=== PATIENT | female | born 1965 | race Caucasian/White ===

== ENCOUNTER → 2016-11-21 | Outpatient (CLI) | payer BC, OTHER ==
[~2016-11-21] VITALS: Ht 165.1 cm; Wt 101.6 kg
[~2016-11-21] MED LIST: ACETAMINOPHEN-1 EACH PO; ALPRAZOLAM XR1 MG PO; APAP500 PO; ASA5UEC PO; ASA81BEC PO; ASPIRIN325 PO; BENTYL 10 MG CA10 M1 PO; BUTRANS1 EAC1 TD; CARDIZEM CD180 MG PO; CARDIZEM CD240 MG PO; CELEBREX 200 M200 MG PO; CYMBALTA30 MG PO; CYMBALTA60 MG PO; FLEXERIL PO; GRALISE600 MG PO; HYDROCODON-ACE1 EAC7 PO; HYDROCODONE-AP1 EAC6 PO; IBUPROFEN 600600 M1 PO; KEFLEX125 MG/5 M PO; LAMICTAL150 MG PO; LATUDA40 MG PO; LIDODERM 5%1 PATCH TOP; LITHIUM CARBON300 M3 PO; LOPRESSOR PO; LYRICA 50 MG50 MG PO; MOBIC15 MG PO; MOBIC7.5 MG PO; NABUMETONE 500500 M1 PO; NAPROSYN500 MG PO; NEURONTIN 300300 M1 PO; NORCO 5-325 TA1 EACH PO; OXCARBAZEPINE300 MG PO; OXCARBAZEPINE600 MG PO; PAXIL10 MG PO; PERCOCET PO; POTASSIUM20 PO; PRIMIDONE50 MG PO; PROPRANOLOL 1010 MG PO; RYTHMOL SR325 MG PO; TOPROL XL25 MG PO; TRILEPTAL300 MG PO; VALTREX 500 MG500 M1 PO; VALTREX 500 MG500 MG PO; VITAMIN B-12500 MCG PO; VITAMIN B12-FO1 EAC1 PO; XANAX1 MG PO; [UNRECOGNIZED DRUG - OTHER]
[2016-11-21 09:05] VITALS: BP 138/86
== END | disposition home or self-care (01) ==
LOC: PAIN 07:01
DX: M79.7 Fibromyalgia (principal); M54.6 Pain in thoracic spine; G89.29 Other chronic pain; F11.20 Opioid dependence, uncomplicated; Z87.891 Personal history of nicotine dependence; Z88.8 Allergy status to other drugs, medicaments and biological substances; Z79.82 Long term (current) use of aspirin

== ENCOUNTER → 2017-02-26 | Outpatient (CLI) | payer BC, OTHER ==
[~2017-02-26] VITALS: Ht 162.6 cm; Wt 103.4 kg
[~2017-02-26] MED LIST changes: +METHOCARBAMOL500 M2 PO
--- NOTE | ~2017-02-26 | HPC ---
[facility] [address] [place] [address] PAIN MANAGEMENT CONSULTATION Name: ANTWON LEONG Room #: REG WHITNEY NuñezChapincito#: [id number] Admission: 02/26/17 Attend Phys: Adi Lujan DO Discharge: Date of : 65 Report #: [id number] THIS REPORT FOR: //name// CC: Adi Medrano DATE OF SERVICE: 02/26/2017 REFERRING PHYSICIAN: Dr. Adi Oliveira. CHIEF COMPLAINT: Generalized body pain, increasing essential tremors. HISTORY OF PRESENT ILLNESS: As you know, the patient is a very unfortunate morbidly obese 51-year-old female with longstanding history of generalized pain disorder due to fibromyalgia. She also is experiencing increasing back pain, lower buttock pain after recent falls due to essential tremor and weakness. She is continuing workup for the essential tremors and is considering medical management options and deep brain stimulation. This should improve the patient's fall risk. She continues to experience generalized pain disorder for which she places pain score up to 8/10 involving her whole body. She describes the pain as numbness and stabbing, exacerbated with touching, weather, sitting, improves with rest, repositioning. She returns today in followup visit for medication management and discuss options for treatment for generalized body pain secondary to fibromyalgia. ALLERGIES: DILTIAZEM, NABUMETONE, LAMOTRIGINE, GABAPENTIN, BUPRENORPHINE, DULOXETINE, ARIPIPRAZOLE. CURRENT MEDICATIONS: Meloxicam, hydrocodone, alprazolam, lithium, diltiazem, long acting lamotrigine, dicyclomine, cyanocobalamin, valacyclovir, aspirin, and propafenone. SOCIAL HISTORY: The patient continues to smoke. Denies IV or illicit drug use. Denies any chronic alcohol use. She is on disability for her generalized pain disorder. She is unaccompanied today. IMAGING: No imaging available. PHYSICAL EXAMINATION: VITAL SIGNS: Blood pressure 132/85, pulse 83, respiratory rate 15, unlabored. The patient is 98% on room air. Height 5 feet 4 inches tall, weight 228 pounds, BMI calculated 39.1. GENERAL: Well-developed, well-nourished, well-hydrated, morbidly obese 51-year-old female, appearing older than stated age. She is placing pain score today 9-03/12. [place] [address] PAIN MANAGEMENT CONSULTATION Name: ANTWON LEONG Room #: REG WHITNEY Izaiah#: [id number] Admission: 02/26/17 Attend Phys: Adi Lujan DO Discharge: Date of : 65 Report #: [id number] HEENT: Normocephalic, atraumatic. Pupils equal, round, reactive to light. Extraocular muscles are intact. NEUROLOGIC: Speech is fluent. The patient deemed a fair historian. LUNGS: Clear, no wheeze, rhonchi or rales. CARDIOVASCULAR: Regular. No appreciable gallop or rub. ABDOMEN: Soft, obese, nontender, nondistended. EXTREMITIES: Show no clubbing, no cyanosis, no edema. MUSCULOSKELETAL: The patient does have essential tremors in the upper and lower extremities. These appear more profound than our last visit. She is continuing workup for this issue. There is palpatory tenderness of 18/18 tender points indicative of myofascial pain. ASSESSMENT: 1. Myofascial pain secondary to fibromyalgia. 2. Essential tremors. 3. Chronic intractable pain. PLAN: 1. The patient has returned today in followup visit where she is indicating generalized body pain once again. This appears to be related to fibromyalgia. We have had this discussion with the patient in the past and I am having the discussion again today about CDC's recommended guidelines for fibromyalgia, opioid management is not a consistent treatment option. She has been on hydrocodone prior to her visiting our clinic and we continued her on the medication as this was apparently the only thing that improved the symptoms, though at each visit the patient is indicating these are providing no benefit. I have discussed this with the patient once again today. She states that she misspoke, her pain medications do work well and wants to continue on the therapy. I have advised the patient at this time CDC recommended guidelines do indicate hydrocodone and other opioids are a relative contraindication in fibromyalgia. She will ultimately need to be seen by Rheumatology to rule out other etiologies other than fibromyalgia. If she continues to have the diagnosis of fibromyalgia, we will have to adjust her medications to comply with CDC guidelines, which do not indicate opioids as a viable treatment option. 2. The patient has recently sustained a fall and is experiencing some muscle spasming in the mid thoracic area. I will add a relatively nonsedating muscle relaxant to help with this issue. I have advised the patient this is not a long-acting treatment, she will need to do stretching exercises, core strengthening to improve her muscle spasming issues. She will need to initiate that therapy immediately. 3. The patient was provided a prescription of methocarbamol 500 mg dose 1 tab p.o. b.i.d., given the patient #60 tablets, 2 refills. This is to be used as needed. This will only be a short-term dosing use. 4. The patient was provided a refill prescription on meloxicam 7.5 mg 1 tab p.o. b.i.d., #60, two refills. She is denying any side effects of medication and we will continue this therapy. [facility] [address] [place] [address] PAIN MANAGEMENT CONSULTATION Name: ANWTON LEONG Room #: REG WHITNEY FriedmanHarvey.#: [id number] Admission: 02/26/17 Attend Phys: Adi Lujan DO Discharge: Date of : 65 Report #: [id number] 5. The patient was provided hydrocodone 5/325 one tab p.o. q.8 hours p.r.n. for pain, #90, releases of today, 4 weeks from today, 8 weeks from today. I did advise the patient that this medication will likely be discontinued in the very near future as the patient does have a diagnosis of fibromyalgia and opioids are a relative contraindication in fibromyalgia patients. They are met with low efficacy and high abuse potential. We discussed this with the patient today. She is going to consider her options and will discuss this at followup visit. 6. We will adjust medications again once the patient returns next visit. If we have her stabilized on medication, we will be returning her care to her primary care physician for continuation of therapy. It does not require a pain management physician to continue to write for medications that are stable and have been stable from almost 2 years. We will make the adjustments in the hydrocodone, which will allow the primary care physician to take over the writing of other baseline medications. By: [id number] Adi Lujan DO /clement
[2017-02-26 10:09] VITALS: BP 132/85
== END | disposition home or self-care (01) ==
LOC: PAIN 07:11
DX: M79.1 Myalgia (principal); G25.0 Essential tremor; G89.29 Other chronic pain; Z68.39 Body mass index [BMI] 39.0-39.9, adult; Z88.8 Allergy status to other drugs, medicaments and biological substances; Z79.899 Other long term (current) drug therapy

== ENCOUNTER → 2017-05-21 | Outpatient (CLI) | payer BC, OTHER ==
[~2017-05-21] VITALS: Ht 162.6 cm; Wt 106.5 kg
[~2017-05-21] MED LIST changes: -LAMICTAL150 MG PO; +LAMICTAL200 MG PO; +TOPAMAX50 MG PO
--- NOTE | ~2017-05-21 | HPC ---
[facility] [place] [address] PAIN MANAGEMENT CONSULTATION Name: ANTWON LEONG Room #: REG WHITNEY Joaquin.#: [id number] Admission: 05/21/17 Attend Phys: Adi Lujan DO Discharge: Date of : 65 Report #: [id number] THIS REPORT FOR: //name// CC: Saniya Lujan DATE OF SERVICE: 05/21/2017 CHIEF COMPLAINT: Generalized body pain, essential tremors. HISTORY OF PRESENT ILLNESS: As you know, the patient is a very unfortunate 51-year-old morbidly obese female with long-standing history of generalized pain disorder due to fibromyalgia. She has also been experiencing essential tremors, for which she is being evaluated by Neurology. She returns today in followup visit, requesting refills on her hydrocodone, Mobic and methocarbamol. She is indicating that she does receive analgesic benefit with this medication despite the elevated pain level of 3-4/10 today. She states that weather, sitting, driving and touching her, exacerbates her symptoms; improves with rest, repositioning, medications. We have discussed with the patient at previous evaluations that ultimately the hydrocodone will need to discontinue as this is not an appropriate treatment option per the CDC recommended guidelines for fibromyalgia. This patient requests that we continue the medication for the next 3 months and then adjust once spring begins. ALLERGIES: DILTIAZEM, NABUMETONE, LAMOTRIGINE, GABAPENTIN, BUPRENORPHINE, DULOXETINE, ARIPIPRAZOLE. CURRENT MEDICATIONS: Meloxicam, hydrocodone, alprazolam, lithium, diltiazem, lamotrigine, dicyclomine, cyanocobalamin, valacyclovir, aspirin and propafenone. SOCIAL HISTORY: The patient continues to smoke. Denies IV or illicit drug use. Denies any chronic alcohol use. She is on disability due to generalized pain disorder, unaccompanied today. IMAGING: No new imaging available. PHYSICAL EXAMINATION: VITAL SIGNS: Blood pressure 122/69, pulse 66, respiratory rate 14 and unlabored. The patient is 97% on room air. Height 5 feet 4 inches tall, weight 234.8 pounds, BMI calculated 40.3. GENERAL: Well-developed, well-nourished, well-hydrated, class 3 morbidly obese 51-year-old female appearing her stated age, placing pain score today 3-4/10. HEENT: Normocephalic, atraumatic. Pupils equal, round, reactive to light. EXTREMITIES: Show no clubbing, no cyanosis, no edema. MUSCULOSKELETAL: The patient is tender to palpation of 18/18 tender points, indicative of fibromyalgia. She does show essential [place] [address] PAIN MANAGEMENT CONSULTATION Name: DANGANTWON R Room #: REG WHITNEY Bliss#: [id number] Admission: 05/21/17 Attend Phys: Adi Lujan DO Discharge: Date of : 65 Report #: [id number] lower extremities. ASSESSMENT: 1. Fibromyalgia. 2. Essential tremors. 3. Chronic intractable pain. PLAN: 1. The patient returns today in followup visit, requesting refill on medications. She is taking hydrocodone 5/325 three times a day for pain control along with meloxicam 7.5 mg twice a day for anti-inflammatory effects and methocarbamol 500 mg for muscle spasming twice a day. The patient states the combination of medications are beneficial for pain control and places pain score today 3-4/10. I have discussed with the patient our concerns of these medications with a diagnosis of fibromyalgia. Fibromyalgia is a relative contraindication for opioid medications and have voiced her concerns about this today. I have advised the patient that we will be complying with CDC's recommended guidelines for fibromyalgia treatment and that these medications will ultimately be discontinued. The patient has requested that we delay are discontinuation of medication for the next 3 months as she does wish to get through the winter before making adjustments in her medications. I have agreed to provide 3 more months' worth of medication as she is noticing analgesic benefit, no side effects, but have indicated that continuation of this therapy is not indicated further given the new CDC guidelines for fibromyalgia treatment, which do not include opioid therapy. She can continue on the meloxicam and the methocarbamol. These appear to be appropriate per the new recommendations. 2. The patient was provided hydrocodone 5/325 one tab every 8 hours p.r.n. for pain, #90, releases of today, 4 weeks from today, 8 weeks from today, 3 months' worth of medication. 3. The patient was provided a prescription of Mobic 7.5 mg 1 tab p.o. b.i.d., #60, two refills. 4. The patient was provided prescription of methocarbamol 500 mg dose, 1 tab p.o. b.i.d., #60, two refills. 5. I will see the patient back in followup visit in 3 months where we will discontinue the hydrocodone and begin CDC recommended guideline treatment for fibromyalgia. By: [id number] Adi Lujan DO /nt
[2017-05-21 09:30] VITALS: BP 122/69
== END ==
LOC: PAIN 06:43
DX: G25.0 Essential tremor (principal); G89.29 Other chronic pain; M79.7 Fibromyalgia; F17.200 Nicotine dependence, unspecified, uncomplicated

== ENCOUNTER → 2017-08-20 | Outpatient (CLI) | payer BC, OTHER ==
[~2017-08-20] VITALS: Ht 162.6 cm; Wt 104.1 kg
[~2017-08-20] MED LIST changes: +BACLOFEN 10MG T10 MG PO; +VRAYLAR1.5 MG PO
--- NOTE | ~2017-08-20 | HPC ---
[facility] [place] [address] [place] [address] PAIN MANAGEMENT CONSULTATION Name: ANTWON LEONG Room #: REG WHITNEY Izaiah#: [id number] Admission: 08/20/17 Attend Phys: Adi Lujan DO Discharge: Date of : 65 Report #: [id number] THIS REPORT FOR: //name// CC: WALTER Lujan DATE OF SERVICE: 08/20/2017 CHIEF COMPLAINT: Generalized body pain, essential tremors, low back pain. HISTORY OF PRESENT ILLNESS: As you know, the patient is a very unfortunate 51-year-old morbidly obese female with longstanding history of generalized pain disorder due to fibromyalgia. She is also experiencing general essential tremors, being evaluated through Neurology and treatment options have begun. She is also complaining of low back pain for which she states she sustained a recent fall. She has sought no evaluation or treatment. This fall occurred about one week ago, but her pain has continued. She returns to discuss medication management as she is finding benefit with hydrocodone, meloxicam and baclofen, but is also concerned about this new onset of low back pain after her fall. ALLERGIES: DILTIAZEM, NABUMETONE, LAMOTRIGINE, GABAPENTIN, BUPRENORPHINE, DULOXETINE, ARIPIPRAZOLE. CURRENT MEDICATIONS: Meloxicam, hydrocodone, alprazolam, lithium, diltiazem, lamotrigine, doxycycline, valacyclovir, aspirin, and propafenone. SOCIAL HISTORY: The patient continues to smoke. Denies IV or illicit drug use. Denies any chronic alcohol use. She is on disability due to chronic generalized pain. IMAGING: No new imaging available. PHYSICAL EXAMINATION: VITAL SIGNS: Blood pressure 118/74, pulse 77, respiratory rate 16 and unlabored. The patient is 98% on room air. Height 5 feet 4 inches tall, weight 229.6 pounds, BMI calculated at 39.4. GENERAL: Well-developed, well-nourished, well-hydrated, morbidly obese 51-year-old female appearing her stated age, placing current pain score at 6-7/10. HEENT: Normocephalic, atraumatic. Pupils equal, round, reactive to light. Extraocular muscles are intact. EXTREMITIES: Show no clubbing, no cyanosis, no edema. MUSCULOSKELETAL: The patient remains tender to palpation of 18/18 tender points indicative of fibromyalgia. She does show essential tremors in the [address] [address] PAIN MANAGEMENT CONSULTATION Name: ANTWON LEONG [id number] Admission: 08/20/17 Attend Phys: Adi Lujan DO Discharge: Date of : 65 Report #: [id number] extremities, but these appear to be slightly improved. She has palpatory tenderness over the lower back area. No ecchymosis, no changes in skin color texture. ASSESSMENT: 1. Fibromyalgia. 2. Low back pain status post fall. 3. Chronic intractable pain. PLAN: 1. The patient has returned today in followup visit indicating a recent fall exacerbating low back pain. She returns here for evaluation she has not sought any treatment. She states the fall led to instantaneous back pain, but did not seek any type of evaluation. She has not improved over the past week. Recommend the patient to undergo x-ray imaging of the lumbar region. We will have the patient undergo the imaging today, both AP and lateral imaging will be performed. The patient can contact the clinic tomorrow for the results. 2. The patient has requested refill on medications in the form of baclofen 10 mg dose 1 tab p.o. t.i.d., this is a medication to replace her methocarbamol that she requested at last visit. She stated that the methocarbamol at last visit worked very well, but unfortunately did not work as she had anticipated. We will trial the patient on baclofen 10 mg dose. This is a more appropriate muscle relaxant medication for this patient. She was given # 90 tablets, 2 refills. 3. The patient has a received a refill of meloxicam 7.5 mg 1 tab p.o. b.i.d., # 60, two refills. This is used for anti-inflammatory effects. She is denying side effects with its use. 4. The patient has requested refill on hydrocodone. She is taking 5/325 up to 3 a day. She states that at present she has a prescription of 1.5 bottles remaining. She will only need a refill in 4 weeks instead of her typical 3 prescriptions. Recommend the patient use this as inconsistently as possible. I did discuss with the patient that opioid medications in fibromyalgia patient is relative contraindication, these will likely need to be discontinued sooner rather than later. At this point, we will continue the patient on the medication as she does find benefit and she is using them appropriately for her generalized pain, but ultimately will have to wean off. We discussed this again today. She was given a prescription of hydrocodone 5/325 one tab every 8 hours p.r.n. for pain, #90, releasing in 4 weeks. 5. The patient will submit urine drug screen today. This is part of our screening process to confirm patients are utilizing medication appropriately. The patient has submitted to screen, we will have the results within about [address] [id number] PAIN MANAGEMENT CONSULTATION Name: ANTWON LEONG Gonzales Room #: REG WHITNEY Bliss#: [id number] Admission: 08/20/17 Attend Phys: Adi Lujan DO Discharge: Date of : 65 Report #: [id number] weeks. She can contact our clinic. She remains under contract with [facility] for opioid therapy. <ELECTRONICALLY SIGNED> By: Adi Lujan DO 08/28/17 0736 [id number] Adi Lujan DO /nt
[2017-08-20 10:03] VITALS: BP 118/74
== END ==
LOC: PAIN 07:01
DX: M43.16 Spondylolisthesis, lumbar region (principal); M51.37 Other intervertebral disc degeneration, lumbosacral region; M79.7 Fibromyalgia; Z79.899 Other long term (current) drug therapy

== ENCOUNTER → 2017-12-11 | Outpatient (CLI) | payer BC, OTHER ==
[~2017-12-11] VITALS: Ht 162.6 cm; Wt 104.0 kg
[2017-12-11 10:29] VITALS: BP 129/92
== END ==
LOC: PAIN 12-10 12:23
DX: M54.5 Low back pain (principal); M19.90 Unspecified osteoarthritis, unspecified site; I10 Essential (primary) hypertension; Z79.891 Long term (current) use of opiate analgesic; Z87.891 Personal history of nicotine dependence

== ENCOUNTER → 2018-03-25 | Outpatient (CLI) | payer BC, OTHER ==
[~2018-03-25] VITALS: Ht 162.6 cm; Wt 103.9 kg
--- NOTE | ~2018-03-25 | HPC ---
[facility] [place] [address] PAIN MANAGEMENT CONSULTATION Name: ANTWON LEONG Room #: REG WHITNEY Izaiah#: [id number] Admission: 03/25/18 Attend Phys: Olive Breaux Discharge: Date of : 65 Report #: [id number] THIS REPORT FOR: //name// CC: Olive Morrow MD DATE OF SERVICE: 03/25/2018 CHIEF COMPLAINT: Generalized body pain, essential tremors, low back pain and fibromyalgia. HISTORY OF PRESENT ILLNESS: As you know, this patient is a very unfortunate 52-year-old female with longstanding history of generalized pain disorder due to her fibromyalgia. She also suffers from essential tremors, which are very obvious presently today. She is being treated for that through Neurology. She also complains today of low back pain, mid thoracic pain, especially at her bra line and some knee pain, especially right knee. She states that she needs a refill of her medications. She states that today has been a bad day, rating her pain 6-7/10. Normally it is an average pain of 5, but she states that she has been out of her pain meds for several days. She states that she does take about 0-3 tablets a day, which is equivalent to 15 mEq of morphine a day, which is below the CDC guidelines and Meloxicam 7.5 twice a day, which she takes every day. She states that it is very helpful to relieve her pain. She tells me that she is having increased knee pain and so she has seen the orthopedic, Dr. Mancera on Saturday. She is hopeful for a possible knee replacement. I did talk to the patient that she will need x-ray films first and maybe there are other options before orthopedic replaced her knee. The patient will be seen in consult on Saturday and then will know the results after that. ALLERGIES: SOY, VALIUM, NABUMETONE, GABAPENTIN, FLECAINIDE, BUTRANS, PROPRANOLOL, CYMBALTA, ABILIFY. CURRENT LIST OF MEDICATIONS: Meloxicam 7.5 b.i.d., hydrocodone 5/325 up to 3 times a day, Xanax 1 mg daily, lithium 300 mg 1 in the morning, 2 at night, Cardizem 240 mg once a day, Lamictal 200 mg 2 tablets twice a day, vitamin B12, Valtrex 500 mg daily, 325 aspirin, Rythmol 325 b.i.d., cariprazine hydrochloride 1.5 capsules daily. PQRS: 1. History of osteoarthritis in her back and her knees. No history of rheumatoid arthritis. 2. Height 5 feet 4 inches, weight 229, BMI is 39.3. 3. Vital signs: 131/86, pulse is 91, respirations 14, oxygen is 98. 4. Pain score is 6-7. 5. Fall risk. Denies dizziness. Does not need help walking and standing, but [address] [place] [address] PAIN MANAGEMENT CONSULTATION Name: ANTWON LEONG Room #: REG WHITNEY Bliss#: [id number] Admission: 03/25/18 Attend Phys: Olive Breaux Discharge: Date of : 65 Report #: [id number] states that she has fallen a couple times like going up the steps due to decreased strength she states. No hospitalization or doctor visit with that fall. 6. Denies blood thinners. 7. Does have a history of hypertension. 8. Opioid therapy greater than 6 weeks. Therefore, is on opioids on contract on the chart. 9. Risk assessment tool is low. 10. Functional assessment is 56/70. 11. The patient denies recreational drug use, is a former smoker and no alcohol use. [facility] DPMP has been checked on this patient. There was a fill from a dentist. When I asked the patient about this, she states that she had had a root canal and was given 3 days of hydrocodone. I explained to the patient that she has a contract that she signed with Dr. Lujan in agreement that she would only get narcotics from our doctor. The patient states she did not understand that she could not get some when she had surgery. I explained to the patient as she would have called and let us know of this, we would have tried to make alterations in her current medications, so she would not need to fill the hydrocodone from this dentist. The patient states she is aware of this now and will not make the same mistake in the future. She did question about if she did have a knee replacement and required medications. I informed her to call our office and we would discuss it at that time and possibly would okay that fill due to her postop pain that she will incur. PHYSICAL ASSESSMENT: VITAL SIGNS: 131/86, pulse 91, respirations 14, oxygen sat 98 on room air. GENERAL: Well-developed, well-nourished, well-hydrated, obese 52-year-old female, appears her stated age. She is in no acute distress. She is alert and oriented x 3. The patient's pain score is 6-7/10. HEENT: Normocephalic, atraumatic. Pupils equal, round and reactive to light. Speech is fluent. EXTREMITIES: No clubbing, no cyanosis, no edema. MUSCULOSKELETAL: The patient has tenderness over her knee today and strength is 3/5, appears diminished on the right side. She does display essential tremors, mainly in her upper extremities. She also has tenderness to palpation on her back. IMPRESSION: 1. Fibromyalgia. 2. Chronic low back pain. 3. Chronic intractable pain. 4. Essential tremors. 5. Right knee pain. [facility] [address] [place] [address] PAIN MANAGEMENT CONSULTATION Name: ADNGANTWON Room #: REG WHITNEY Izaiah#: [id number] Admission: 03/25/18 Attend Phys: Olive Breaux Discharge: Date of : 65 Report #: [id number] We reviewed the fact that opiate medications are being used to provide analgesia adequate to support activities of daily living, not attempting to achieve a specific pain score on the 0-10 Visual Analog Scale. The current opiate medications are providing sufficient analgesia to allow the patient to participate in activities of daily living. The patient is not exhibiting any aberrant behavior suggestive of drug diversion. The patient is not having any adverse reactions to medications. The patient is not suffering from daytime somnolence or mental acuity changes. The patient is managing opiate-induced constipation with appropriate tivy-jxd-lpeuden agents and dietary considerations. The patient was counseled on concern for caution with operating a motor vehicle while using opiate medications. A physical exam was performed and the patient's functional status was evaluated. All patients with back pain were advised against the bed rest greater than 4 days and were advised to return to normal activities. Pain score assessment was noted and the treatment plan was reviewed with the patient. All current medications, both prescribed and OTC were reviewed and reconciled on the electronic medical record. Tobacco screening was accomplished and smoking cessation was advised when indicated. BMI was noted and diet/exercise modification was recommended for all patients following outside normal parameters. I reviewed with the patient today their responsibilities to safeguard prescription medications, reviewed their responsibility to utilize medications only as prescribed by the physician. They are to seek and receive pain medications only from 1 physician group ( [facility]). They are to use 1 pharmacy and keep the clinic informed if they change pharmacies. Their responsibilities include making followup visits in a timely fashion and to avoid abrupt discontinuation of medication usage. Their responsibilities further include bringing their medications (bottles from the pharmacy with residual pills) to the visit for possible confirmation of pill counts and the patient understands it is their responsibility to submit to random drug screens to ensure both that the medications prescribed are present, and that no other controlled substances are present. All prescriptions provided today were generated electronically. PLAN: 1. The patient returns today for followup for refills of both her hydrocodone and her Meloxicam. After discussion with the patient today according to the CDC guidelines, she is in a relatively low MME 15 or less per day. We discussed this with the patient and she finds that the medication is helpful in treating her pain. We have elected today to give her hydrocodone 5/325 one p.o. t.i.d., #90 with refills today and again in 8 weeks, Meloxicam 7.5 mg 1 p.o. b.i.d. #60 with 2 refills was given. 2. We discussed the fact that she has gotten her medicines from another doctor and counseled her on not filling medicines outside of this office due to her [address] [address] PAIN MANAGEMENT CONSULTATION Name: ANTWON LEONG Room #: REG WHITNEY Bliss#: [id number] Admission: 03/25/18 Attend Phys: Olive Breaux Discharge: Date of : 65 Report #: [id number] opioid agreement with Dr. Adi Lujan. The patient is agreeable with this and in the future will notify her doctor if she becomes in possession of a script for either dental work or surgery. 3. The patient is to see Dr. Mancera, orthopedic surgeon on Saturday regarding her right knee pain. If the patient does require injections for knees, I informed her that Dr. Lujan is able to do those if need be or if she has surgery, then to please contact our office. 4. The patient will be seen in followup in 3 months for medication refills by Dr. Adi Lujan or myself if not sooner for injections. The patient was seen in collaboration with Dr. Adi Lujan. <ELECTRONICALLY SIGNED> By: Olive Breaux 03/26/18 0710 [id number] Olive Breaux /nt
[2018-03-25 12:57] VITALS: BP 131/86
== END ==
LOC: PAIN 06:18
DX: M54.5 Low back pain (principal); M79.7 Fibromyalgia; G89.4 Chronic pain syndrome; M25.561 Pain in right knee; G25.0 Essential tremor; Z79.899 Other long term (current) drug therapy

== ENCOUNTER → 2018-06-16 | Outpatient (CLI) | payer BC, OTHER ==
[~2018-06-16] VITALS: Ht 162.6 cm; Wt 105.7 kg
[~2018-06-16] MED LIST changes: +LIORESAL 10 MG10 MG PO
[2018-06-16 12:57] VITALS: BP 128/88
--- NOTE | 2018-06-16 13:02 | NUR ---
Pain Clinic Assessment: 1. History of Osteoarthritis: Not Applicable History of Rheumatoid Arthritis: Not Applicable 2. Height: 5 ft. 4 in. 162.6 cm. Weight: 233.0 lb. oz. 105.688 kg. Patient's BMI: 40.0 3. Vital Signs: BP: 128/88 Pulse: 84 Resp: 14 Temp: 02 Sat: 97 ECG Mon: 4. Pain Intensity: 6 5. Fall Risk: Dizziness: N Needs help standing or walking: N Fallen in the last 3 months: N Fall risk comments: 6. Patient on Blood Thinner: None 7. History of Hypertension: Y 8. Opioid Therapy greater than 6 weeks: Y Opiate Contract Signed: 12/27/15 9. Risk Assessment Tool Provided: Opioid Risk Tool 10. Functional Assessment Tool: 11. Recreational Drug Use: Never Drug Type: Tobacco Use: Former Smoker Tobacco Type: Amount or Packs/day: How Many Years: Alcohol Use: No Frequency: Quant:
--- NOTE | 2018-06-17 08:09 | HPC ---
[facility] [address] [address] PAIN MANAGEMENT CONSULTATION Name: ANTWON LEONG Gonzales Room #: REG WHITNEY Izaiah#: [id number] Admission: 06/16/18 Attend Phys: Olive Breaux Discharge: Date of : 65 Report #: [id number] THIS REPORT FOR: //name// CC: Olive Morrow DATE OF SERVICE: 06/16/2018 CHIEF COMPLAINT: Generalized body pain, essential tremors, low back pain, fibromyalgia and knee pain. HISTORY OF PRESENT ILLNESS: This is a very unfortunate 52-year-old with longstanding history of generalized pain disorder and fibromyalgia. She is here today for medication refill, but complaining of knee pain. She tells me that she has been getting injections in her knees from an Orthopedics, Nadir Mancera. She is getting Synvisc. She has had 2 injections so far and doing physical therapy for her knees. She tells me that physical therapy has increased her mid back pain. They showed her how to do some different exercises to not hurt her back so much. She is doing those at home on a regular basis. Her pain today is 6/10. She said worse with the weather. Sometimes, it is stabbing, sharp pain and average pain score for her, though, is 5/10. She states the medications are very helpful. Denies constipation or daytime sleepiness. She is having some increased muscle spasms with all of her physical therapy. She has had baclofen in the past and would like a refill of that medication as well as her pain medicine today. ALLERGIES: SOY, VALIUM, NABUMETONE, GABAPENTIN, FLECAINIDE, BUTRANS, PROPRANOLOL, CYMBALTA, ABILIFY. CURRENT LIST OF MEDICATIONS: Meloxicam 7.5 mg twice a day, hydrocodone 5/325 mg as needed, Vraylar 1.5 mg capsule daily, Xanax 1 mg daily, lithium 300 mg 1 in the morning and 2 at night, Cardizem 240 mg daily, Lamictal 400 mg daily, vitamin B12 daily, Valtrex daily, aspirin 325 mg daily, propafenone 325 mg twice a day. PQRS: 1. She has a history of osteoarthritis in her bilateral knees. No history of rheumatoid arthritis. 2. Height is 5 feet 4 inches, weight is 233, BMI is 40. 3. Vital signs: Blood pressure 128/88, pulse is 84, respirations 14, oxygen sat is 97%. 4. Pain score 6/10. 5. Fall risk. Denies dizziness and does not need any help walking or standing, has not fallen in the last 3 months. 6. Denies blood thinners. Does take antihypertensive medicines. 7. Opiate therapy is greater than 6 weeks; therefore, an opioid signed contract [address] [address] PAIN MANAGEMENT CONSULTATION Name: JUAN CARLOS LEONGLAYLA Rolon Room #: REG WHITNEY Bliss#: [id number] Admission: 06/16/18 Attend Phys: Olive Breaux Discharge: Date of : 65 Report #: [id number] is on the chart. 8. Risk assessment tool is low. Her functional assessment is 56/70. 9. Recreational drug use. She denies. She is a former smoker and does not drink alcohol. Her prescription monitoring system is on the chart and is appropriate. Her recent fill of narcotic was 06/05/2018. The patient tells me she safeguards her medications. PHYSICAL EXAMINATION: GENERAL: A well-developed, well-nourished, well-hydrated, obese 52-year-old female who appears her stated age. She is in no acute distress. She is alert and orientated. Her pain score today is 6/10. HEENT: Normocephalic, atraumatic. Pupils round, equal and reactive to light. Speech is fluent. The patient is a good historian. EXTREMITIES: No clubbing, no cyanosis, no edema. Complains of tenderness in bilateral knees. MUSCULOSKELETAL: Her strength appears to be 4/5 bilaterally, slightly diminished on the right. She does display essential tremors mainly in her upper extremities. Complains of muscle spasms in her lower and middle back. ASSESSMENT: 1. Fibromyalgia. 2. Chronic low back pain. 3. Chronic intractable pain. 4. Essential tremors. 5. Right knee pain. We reviewed the fact that opiate medications are being used to provide analgesia adequate to support activities of daily living, not attempting to achieve a specific pain score on the 0-10 Visual Analog Scale. The current opiate medications are providing sufficient analgesia to allow the patient to participate in activities of daily living. The patient is not exhibiting any aberrant behavior suggestive of drug diversion. The patient is not having any adverse reactions to medications. The patient is not suffering from daytime somnolence or mental acuity changes. The patient is managing opiate-induced constipation with appropriate cuiy-iwk-ruxxnez agents and dietary considerations. The patient was counseled on concern for caution with operating a motor vehicle while using opiate medications. A physical exam was performed and the patient's functional status was evaluated. All patients with back pain were advised against the bed rest greater than 4 days and were advised to return to normal activities. Pain score assessment was noted and the treatment plan was reviewed with the patient. All current medications, both prescribed and OTC were reviewed and reconciled on the electronic medical record. Tobacco screening was accomplished and smoking cessation was advised when indicated. BMI was noted and diet/exercise modification was recommended for all patients following outside normal [facility] [address] [place] [address] PAIN MANAGEMENT CONSULTATION Name: ANTWON LEONG Room #: REG WHITNEY Joaquin.#: [id number] Admission: 06/16/18 Attend Phys: Olive Breaux Discharge: Date of : 65 Report #: [id number] parameters. I reviewed with the patient today their responsibilities to safeguard prescription medications, reviewed their responsibility to utilize medications only as prescribed by the physician. They are to seek and receive pain medications only from 1 physician group ( [facility]). They are to use 1 pharmacy and keep the clinic informed if they change pharmacies. Their responsibilities include making followup visits in a timely fashion and to avoid abrupt discontinuation of medication usage. Their responsibilities further include bringing their medications (bottles from the pharmacy with residual pills) to the visit for possible confirmation of pill counts and the patient understands it is their responsibility to submit to random drug screens to ensure both that the medications prescribed are present, and that no other controlled substances are present. All prescriptions provided today were generated electronically. PLAN: 1. We discussed treatment options with the patient today. She tells me that she would like a refill of her hydrocodone and meloxicam, states they are very helpful in relieving her pain and was also requesting a refill of her baclofen. Last prescription we wrote was in August. She has been taking these sparingly. As well, she uses her hydrocodone sparingly and just filled her last 8-week prescription earlier this month. 2. The patient tells me that she has been getting knee injections from her Orthopedics and they have been helpful in her pain as well as physical therapy. But due to the physical therapy, her muscle spasms have increased, so would like a prescription of baclofen. Script today given for: 1. Hydrocodone 5/325 mg 3 times a day, #92, release today and in 8-week. The patient may not fill those for about 2 more weeks due to her dates. 2. Meloxicam 7.5 mg b.i.d., #60, with 2 additional refills. We may call in Mobic prescription if her narcotic last her longer than 3 months. 3. Final medication, baclofen 10 mg 3 times a day, #90, with 1 additional refill. The patient will be seen in 3-month time period or slightly longer. The patient seen under the collaboration today with Dr. Brijesh Fernandez. <ELECTRONICALLY SIGNED> By: Olive Breaux 06/17/18 0809 [id number] Olive Breaux /clement
== END ==
LOC: PAIN 07:16
DX: M54.5 Low back pain (principal); G89.4 Chronic pain syndrome; M79.7 Fibromyalgia; M25.561 Pain in right knee; G25.0 Essential tremor; Z79.899 Other long term (current) drug therapy

== ENCOUNTER → 2018-09-23 | Outpatient (CLI) | payer BC, OTHER ==
[~2018-09-23] VITALS: Ht 162.6 cm; Wt 104.2 kg
--- NOTE | ~2018-09-23 | HPC ---
[facility] [place] [address] PAIN MANAGEMENT CONSULTATION Name: ANTWON LEONG Room #: REG WHITNEY Harvey.#: [id number] Admission: 09/23/18 ������������������ Attend Phys: Adi Lujan DO Discharge: ������������������ Date of : 65 Report #: [id number] THIS REPORT FOR: //name// CC: Saniya Lujan DATE OF SERVICE: 09/23/2018 CHIEF COMPLAINT: Generalized body pain, essential tremors, chronic low back pain and bilateral knee pain. HISTORY OF PRESENT ILLNESS: As you know, the patient is a very unfortunate 52-year-old female with longstanding history of generalized pain disorder secondary to fibromyalgia. She also suffers from essential tremors for which she is undergoing evaluation low back pain and bilateral knee pain. She returns today in followup visit reporting pain score of a daily average of 5/10. Pain is exacerbated with certain activities such as walking any distance and participating in activities of daily living. Indicates pain is improved with sitting, reclining and medications. She returns today in followup visit requesting refill on medications stating no side effects to the therapy. She is placing pain at 5/10, generalized in nature. ALLERGIES: SOY, DIAZEPAM, NABUMETONE, GABAPENTIN, FLECAINIDE, BUPRENORPHINE, PROPRANOLOL, DULOXETINE AND ARIPIPRAZOLE. CURRENT MEDICATIONS: Hydrocodone/acetaminophen 5/325 one tab every 8 hours p.r.n. for pain, meloxicam 7.5 mg b.i.d., Vraylar 1.5 mg once a day, alprazolam 1 mg 3 times a day, lithium carbonate 300 mg twice a day, diltiazem 240 mg once a day, Xanax 1 mg p.r.n., Lamictal 200 mg 2 tabs per day, cyanocobalamin 500 mcg per day, valacyclovir 500 mg once a day, aspirin 325 mg per day, propafenone 325 mg b.i.d. SOCIAL HISTORY: The patient denies tobacco, alcohol, IV or illicit drug use. She is unemployed. She is unaccompanied today. IMAGING: No new imaging available. PQRS: The patient has known osteoarthritic changes of the bilateral knees. No history of rheumatoid arthritis. She is placing pain intensity of daily average 5/10. She is not a fall risk, but has had a fall in the last 3 months. She does not use any type of ambulatory device. She is not on blood thinners. She is treated for hypertension. She is on chronic opioids. She has a low assessment for opioid addiction. Pain impact tool indicates pain 56/70, severe interference of daily activities secondary to pain. [address] [address] PAIN MANAGEMENT CONSULTATION Name: ANTWON LEONG Gonzales Room #: REG WHITNEY Bliss#: [id number] Admission: 09/23/18 ������������������ Attend Phys: Adi Lujan DO Discharge: ������������������ Date of : 65 Report #: [id number] PHYSICAL EXAMINATION: VITAL SIGNS: Blood pressure 116/81, pulse 90, respiratory rate 16 and unlabored. The patient is 98% on room air. Height 5 feet 4 inches tall, weight 229.8 pounds, BMI calculated 39.4. GENERAL: Well-developed, well-nourished, well-hydrated, exogenously obese 52-year-old female appearing stated age. Pain is rated around 5/10. HEENT: Normocephalic, atraumatic. Pupils equal, round, reactive to light. Speech fluent. The patient deemed a good historian. EXTREMITIES: Show no clubbing, no cyanosis, no edema. MUSCULOSKELETAL: There is tenderness to palpation over the bilateral knees. Active and passive range of motion of knee is met with increasing pain. Standing from a seated position causes increase in knee pain. Strength is diminished bilaterally due to deconditioning. ASSESSMENT: 1. Fibromyalgia. 2. Chronic low back pain. 3. Chronic intractable pain. 4. Bilateral knee pain. 5. Opioid dependency. 6. Chronic intractable pain. PLAN: 1. The patient has returned today in followup visit requesting refill on medications. She feels medications are working beneficially despite the elevated pain score of 5/10 today. We have taken the liberty of reviewing the K-TRACS and MO-TRACS systems. There are no aberrant entries in these records. She returns requesting refill of her Mobic and hydrocodone today. We reviewed the fact that opiate medications are being used to provide analgesia adequate to support activities of daily living, not attempting to achieve a specific pain score on the 0-10 Visual Analog Scale. The current opiate medications are providing sufficient analgesia to allow the patient to participate in activities of daily living. The patient is not exhibiting any aberrant behavior suggestive of drug diversion. The patient is not having any adverse reactions to medications. The patient is not suffering from daytime somnolence or mental acuity changes. The patient is managing opiate-induced constipation with appropriate [id number] agents and dietary considerations. The patient was counseled on concern for caution with operating a motor vehicle while using opiate medications. A physical exam was performed and the patient's functional status was evaluated. All patients with back pain were advised against the bed rest greater than 4 days and were advised to return to normal activities. Pain score assessment was noted and the treatment plan was reviewed with the patient. All current medications, both prescribed and OTC were reviewed and reconciled on the [facility] [address] [place] [address] PAIN MANAGEMENT CONSULTATION Name: ANTWON LEONG Gonzales Room #: REG WHITNEY Izaiah#: [id number] Admission: 09/23/18 ������������������ Attend Phys: Adi Lujan DO Discharge: ������������������ Date of : 65 Report #: [id number] electronic medical record. Tobacco screening was accomplished and smoking cessation was advised when indicated. BMI was noted and diet/exercise modification was recommended for all patients following outside normal parameters. I reviewed with the patient today their responsibilities to safeguard prescription medications, reviewed their responsibility to utilize medications only as prescribed by the physician. They are to seek and receive pain medications only from 1 physician group ( [facility]). They are to use 1 pharmacy and keep the clinic informed if they change pharmacies. Their responsibilities include making followup visits in a timely fashion and to avoid abrupt discontinuation of medication usage. Their responsibilities further include bringing their medications (bottles from the pharmacy with residual pills) to the visit for possible confirmation of pill counts and the patient understands it is their responsibility to submit to random drug screens to ensure both that the medications prescribed are present, and that no other controlled substances are present. All prescriptions provided today were generated electronically. 2. The patient was provided a prescription of hydrocodone 5/325 one tab p.o. q. 8 hours p.r.n. for pain. I have given the patient #90, releasing today and 8 weeks from today, essentially 3 months' worth of medication. 3. The patient was provided prescription of Mobic 7.5 mg 1 tab p.o. b.i.d., #60, 2 refills, 3 months' worth of medication. 4. We will see the patient back in followup visit in 3 months for medication management. ��������������������������������������������� ���������������������������������������� By: ��������������������������������������������� 0931 [id number] Adi Lujan DO /nt
[2018-09-23 10:11] VITALS: BP 116/81
--- NOTE | 2018-09-23 10:23 | NUR ---
Pain Clinic Assessment: 1. History of Osteoarthritis: Not Applicable History of Rheumatoid Arthritis: Not Applicable 2. Height: 5 ft. 4 in. 162.6 cm. Weight: 229.8 lb. oz. 104.237 kg. Patient's BMI: 39.4 3. Vital Signs: BP: 116/81 Pulse: 90 Resp: 16 Temp: 02 Sat: 98 ECG Mon: 4. Pain Intensity: 5-DAILY AVG 5. Fall Risk: Dizziness: N Needs help standing or walking: N Fallen in the last 3 months: Y Fall risk comments: 6. Patient on Blood Thinner: None 7. History of Hypertension: Y 8. Opioid Therapy greater than 6 weeks: Y Opiate Contract Signed: 12/27/15 9. Risk Assessment Tool Provided: Opioid Risk Tool 10. Functional Assessment Tool: 11. Recreational Drug Use: Never Drug Type: Tobacco Use: Former Smoker Tobacco Type: Amount or Packs/day: How Many Years: Alcohol Use: No Frequency: Quant:
== END ==
LOC: PAIN 06:53
DX: G89.29 Other chronic pain (principal); M54.6 Pain in thoracic spine; Z87.891 Personal history of nicotine dependence

== ENCOUNTER → 2018-12-16 | Outpatient (CLI) | payer BC, OTHER ==
[~2018-12-16] VITALS: Ht 162.6 cm; Wt 103.3 kg
[~2018-12-16] MED LIST changes: +NORCO 5-325 TA1 EAC1 PO
[2018-12-16 12:37] VITALS: BP 112/79
--- NOTE | 2018-12-16 12:46 | NUR ---
Pain Clinic Assessment: 1. History of Osteoarthritis: Not Applicable History of Rheumatoid Arthritis: Not Applicable 2. Height: 5 ft. 4 in. 162.6 cm. Weight: 227.8 lb. oz. 103.330 kg. Patient's BMI: 39.1 3. Vital Signs: BP: 112/79 Pulse: 88 Resp: 16 Temp: 02 Sat: 99 ECG Mon: 4. Pain Intensity: 4-TODAY 5. Fall Risk: Dizziness: Y Needs help standing or walking: Y Fallen in the last 3 months: Y Fall risk comments: 6. Patient on Blood Thinner: None 7. History of Hypertension: Y 8. Opioid Therapy greater than 6 weeks: Y Opiate Contract Signed: 12/27/15 9. Risk Assessment Tool Provided: Opioid Risk Tool 10. Functional Assessment Tool: / 11. Recreational Drug Use: Never Drug Type: Tobacco Use: Former Smoker Tobacco Type: Amount or Packs/day: How Many Years: Alcohol Use: No Frequency: Quant:
--- NOTE | 2018-12-23 14:01 | HPC ---
[facility] [place] [address] [place] [address] PAIN MANAGEMENT CONSULTATION Name: ANTWON LEONG Room #: REG WHITNEY Joaquin.#: [id number] Admission: 12/16/18 ������������������ Attend Phys: Adi Lujan DO Discharge: ������������������ Date of : 65 Report #: [id number] THIS REPORT FOR: //name// CC: Saniya Lujan DATE OF SERVICE: 12/16/2018 REFERRING PHYSICIAN: Saniya Morrow M.D. CHIEF COMPLAINT: Generalized body pain, essential tremors, chronic low back pain and bilateral knee pain. HISTORY OF PRESENT ILLNESS: As you know, the patient is a very unfortunate 52-year-old female with longstanding history of generalized pain disorder secondary to fibromyalgia. She suffers from essential tremors for which she is undergoing evaluation. She also suffers from chronic low back pain and bilateral knee pain due to osteoarthritic changes. She returns today in followup visit requesting refill on medications. She indicates that her medications are working well, despite the fact that she is giving pain scores of about 4/10 today. She returns to discuss options for treatment for the residual pain. She denies injury or trauma since our last visit. ALLERGIES: SOY, DIAZEPAM, NABUMETONE, GABAPENTIN, FLECAINIDE, BUPRENORPHINE, PROPRANOLOL, DULOXETINE and ARIPIPRAZOLE. CURRENT MEDICATIONS: Meloxicam 7.5 mg twice a day, hydrocodone 5/325 one tab every 8 hours p.r.n. for pain, Vraylar 1.5 mg once a day, alprazolam 1 mg p.r.n., lithium carbonate 300 mg twice a day, diltiazem 240 mg once a day, alprazolam 1 mg p.r.n., lamotrigine 200 mg once a day, cyanocobalamin 500 mcg per day, valacyclovir 500 mg once a day, aspirin 325 mg per day and propafenone 325 mg twice a day. SOCIAL HISTORY: The patient denies tobacco, alcohol or IV or illicit drug use. She is on disability. She is unaccompanied today. IMAGING DATA: No imaging available. PHYSICAL EXAMINATION: VITAL SIGNS: Blood pressure 112/79, pulse 88, respiratory rate 16 and unlabored and the patient 99% on room air. Height 5 feet 4 inches tall, weight 227.8 pounds and BMI calculated 39.1. GENERAL: Well-developed, well-nourished, well-hydrated exogenously obese 52-year-old female appearing stated age, pain is rated today 4/10. [place] [address] PAIN MANAGEMENT CONSULTATION Name: ANTWON LEONG Room #: REG [facility].#: [id number] Admission: 12/16/18 ������������������ Attend Phys: Adi Lujan DO Discharge: ������������������ Date of : 65 Report #: [id number] HEENT: Normocephalic and atraumatic. Pupils equal, round and reactive to light. EXTREMITIES: Show no clubbing, no cyanosis and no edema. MUSCULOSKELETAL: Lower extremity strength appears symmetrical 5/5. She is intact to light touch from L1 through S2 dermatomes. Seated straight leg raising negative. Supine straight leg raising negative. Hussain's test negative. Modified Gaenslen's positive for axial low back pain. Ankle clonus negative. Babinski is negative. The patient is tender to palpation at 10 of 18 trigger points indicative of myofascial pain. ASSESSMENT: 1. Fibromyalgia. 2. Chronic low back pain. 3. Chronic intractable pain. 4. Bilateral knee pain due to osteoarthritis. 5. Opioid dependency. 6. Chronic intractable pain. PLAN: 1. The patient returns today in followup visit requesting refill of medications. We have had a long discussion at our last visit where I met with the patient prior to her visits with our nurse practitioner as well as again today in regards to opioid medications for generalized pain disorder. These are not typically indicated for generalized pain disorder given their lack of proven efficacy. We have done our best to wean the patient down as much as possible on these medications and we now have her down to no more than 15 morphine equivalents a day in the form of hydrocodone 5/325 three a day. Ultimately these medications will have to be discontinued as they are contraindicated in patients with fibromyalgia. At this point, the patient feels comfortable with the medication, does not want to make further changes but understands that ultimately this will have to happen. We will make adjustments in the patient's current treatment by adding referrals to cognitive behavioral therapy and this will help with her generalized pain disorder and assist in this weaning off of opioid medications in the next couple of months. 2. The patient and I had a very long discussion today about cognitive behavioral therapy and their effects on generalized pain disorder such as fibromyalgia. I think this would be an extremely beneficial component to the patient's treatment option. We have provided a referral to the [facility] for cognitive behavioral therapy. The patient will contact her psychologist initially as apparently this individual does do some cognitive behavioral therapy. If that is the case, she can follow up with her psychologist for treatment from a CBT treatment for analgesic benefit. If the psychologist does not offer this, she is to fill the [facility] referral. This, I think, will be an extremely important component for the patient to utilize and is necessary as part of the treatment course. 3. We have taken the liberty of reviewing the patient's PDMP results from both [facility] [address] [place] [address] PAIN MANAGEMENT CONSULTATION Name: DANGANTWON R Room #: REG WHITNEY Izaiah#: [id number] Admission: 12/16/18 ������������������ Attend Phys: Adi Lujan DO Discharge: ������������������ Date of : 65 Report #: [id number] [place] and [place]. It does appear as the patient is refilling her medications appropriately, she is not receiving opioid medications from any other physician. She is feeling at a single pharmacy, which is also part of our opioid contract. She appears to be complying with opioid contract stipulations. 4. The patient was provided a prescription of hydrocodone 5/325 one tab p.o. q. 8 hours p.r.n. for pain. I have given the patient #90 tablets, releasing today and 4 weeks from today, 2 months' worth of medication. The patient was advised to take the medication only as directed. She is not to rely on the medication prophylactically. 5. We will see the patient back in followup visit in 2 months for medication management or earlier for interventional treatments. ��������������������������������������������� <ELECTRONICALLY SIGNED> ���������������������������������������� By: Adi Lujan DO ��������������������������������������������� 12/23/18 1401 [id number] Adi Lujan DO /nt
== END ==
LOC: PAIN 11:39
DX: M17.0 Bilateral primary osteoarthritis of knee (principal); M54.5 Low back pain; M79.7 Fibromyalgia; G89.29 Other chronic pain; Z79.891 Long term (current) use of opiate analgesic